=== PATIENT | male | born 1970 | race Caucasian/White ===

== ENCOUNTER 2017-11-02 14:42 | Emergency (ER) | payer OTHER ==
[2017-11-02 14:42] VITALS: BMI 22.8
--- NOTE | 2017-11-02 16:15 | C.PDOC ---
History Of Present Illness Patient with PMhx of HIV and Hep C presents to ED requesting blood work, states he has outpatient blood work 1 weeks ago done by his ID physician Dr. Petersen. He states he has been feeling weak and had two episodes of epistaxis in the last two days. Patient denies chest pain, SOB, abdominal pain, nausea/vomiting/ diarrhea, fever. Patient has been compliant with antiviral medications. Time Seen by Provider: 11/02/17 16:00 Chief Complaint (Nursing): Abnormal Labs History Per: Patient History/Exam Limitations: no limitations Current Symptoms Are (Timing): Better Past Medical History Reviewed: Historical Data, Nursing Documentation, Vital Signs Vital Signs: Last Vital Signs Temp 98.1 F 11/02/17 16:22 Pulse 74 11/02/17 16:22 Resp 18 11/02/17 16:22 BP 120/73 11/02/17 16:22 Pulse Ox 98 11/02/17 17:51 - Medical History PMH: Hepatitis, HIV Surgical History: Appendectomy - [facility] Procedures DRAINAGE OF CHEST WALL, PERCUTANEOUS APPROACH (07/07/15) Family History: States: No Known Family Hx - Social History Hx Tobacco Use: Yes Hx Alcohol Use: Yes Hx Substance Use: Yes (not daily use, last use wednesday) - Immunization History Hx Tetanus Toxoid Vaccination: No Hx Influenza Vaccination: No Hx Pneumococcal Vaccination: No Review Of Systems Except As Marked, All Systems Reviewed And Found Negative. Constitutional: Positive for: Weakness (generalized). Negative for: Fever, Chills ENT: Positive for: Other (epistaxis x 2 (resolved)) Cardiovascular: Negative for: Chest Pain, Palpitations Respiratory: Negative for: Cough, Shortness of Breath Gastrointestinal: Negative for: Nausea, Vomiting, Abdominal Pain, Diarrhea Skin: Negative for: Rash Physical Exam - Physical Exam Appears: Well, Non-toxic, No Acute Distress Skin: Normal Color, Warm, Dry Nose: Normal, No Epistaxis, No Septal Hematoma Oral Mucosa: Moist Chest: Symmetrical Cardiovascular: Rhythm Regular Respiratory: Normal Breath Sounds, No Rales, No Rhonchi, No Wheezing Gastrointestinal/Abdominal: Normal Exam, Bowel Sounds, Soft, No Tenderness ED Course And Treatment - Laboratory Results Result Diagrams: 11/02/17 16:41 11/02/17 16:41 O2 Sat by Pulse Oximetry: 98 (RA) Pulse Ox Interpretation: Normal Progress Note: Blood work ordered and reviewed. Patient made aware of blood work results (mild elevation in lipase, liver enzymes, PT/PTT), and given copies to bring to his ID physician. Call made to Dr. Petersen's office, message left requesting call back. Patient instructed to follow up as scheduled November 26, and he understands he should return to ED if symptoms worsen. Disposition Counseled Patient/Family Regarding: Studies Performed, Diagnosis, Need For Followup - Disposition Referrals: Abdias Petersen MD [Medical Doctor] - Disposition: HOME/ ROUTINE Disposition Time: 17:50 Condition: STABLE Additional Instructions: FOLLOW UP WITH DR PETERSEN ON NOVEMBER 26 RETURN TO EMERGENCY ROOM IF SYMPTOMS WORSEN SEGUIMIENTO CON DR PETERSEN EL [facility] Forms: [facility] (Malay), General Discharge Instructions Print Language: BENINESE - Clinical Impression Clinical Impression: Evaluation by medical service required
[2017-11-02 16:45] LABS: BASO # 0.1 K/uL (0.0-0.2); EOS # 0.3 K/uL (0.0-0.7); EOS % 4.9 % (0.0-4.0); HEMOGLOBIN 13.6 g/dL (12.0-18.0); LYMPH # 2.2 K/uL (1.0-4.3); LYMPH % 36.1 % (20.0-40.0); MEAN CORPUSCULAR HEMOGLOBIN 35.6 pg (27.0-31.0); MEAN CORPUSCULAR HGB CONC 35.8 g/dL (33.0-37.0); MEAN PLATELET VOLUME 7.6 fL (7.2-11.7); MONO # 0.5 K/uL (0.0-0.8); MONO % 8.9 % (0.0-10.0); NEUT % 49.1 % (50.0-75.0); NRBC % 0.1 % (0.0-2.0); RBC 3.82 Mil/uL (4.40-5.90); RED CELL DISTRIBUTION WIDTH 13.4 % (11.5-14.5)
[2017-11-02 16:48] LABS: MEAN CELL VOLUME 99.4 fL (80.0-94.0)
[2017-11-02 17:02] LABS: ALB/GLOB RATIO 0.6 (1.0-2.1); ALBUMIN 3.7 g/dL (3.5-5.0); ALT/SGPT 88 U/L (21-72); AST/SGOT 118 U/L (17-59); BLOOD UREA NITROGEN 18 mg/dL (9-20); CALCIUM 9.2 mg/dl (8.6-10.4); GFR AFRICAN-AMERICAN > 60; GFR NON-AFRICAN AMERICAN > 60; LIPASE 353 U/L (23-300)
[2017-11-02 17:04] LABS: INR 1.3; PROTHROMBIN TIME 14.2 SECONDS (9.7-12.2)
[2017-11-02 17:51] VITALS: O2SAT 98
[2017-11-02 18:35] VITALS: BP 122/78; PULSE 78; RESP 16; TEMP 98
== END 2017-11-02 18:20 | disposition home or self-care (01) ==
LOC: C.ER 14:42
DX: Z00.00 Encounter for general adult medical examination without abnormal findings (principal)

== ENCOUNTER 2018-04-23 19:17 | Emergency (ER) | payer OTHER ==
[2018-04-23 19:17] VITALS: BMI 22.8
[2018-04-23] MEDS ORDERED: Aspirin 325 mg EC Tablets PO STA (19:39)
--- NOTE | 2018-04-23 19:39 | C.PDOC ---
History Of Present Illness 48-year-old male, presents to the emergency department with complaints of left sided chest wall pain, that started earlier today while doing a carpet installation. Patient denies any nausea/vomiting, shortness of breath, back pain or any other associated symptoms. No other complaints at this time. Time Seen by Provider: 04/23/18 19:38 Chief Complaint (Nursing): Chest Pain History Per: Patient History/Exam Limitations: no limitations Current Symptoms Are (Timing): Still Present Past Medical History Reviewed: Historical Data, Nursing Documentation, Vital Signs Vital Signs: Last Vital Signs Temp 98.3 F 04/23/18 21:28 Pulse 80 04/23/18 21:28 Resp 16 04/23/18 21:28 BP 110/55 L 04/23/18 21:28 Pulse Ox 97 04/23/18 21:28 - Medical History PMH: Hepatitis, HIV Denies: Chronic Kidney Disease Surgical History: Appendectomy - [facility] Procedures DRAINAGE OF CHEST WALL, PERCUTANEOUS APPROACH (07/07/15) Family History: States: Unknown Family Hx - Social History Hx Tobacco Use: Yes Hx Alcohol Use: No Hx Substance Use: Yes (not daily use, last use wednesday) - Immunization History Hx Tetanus Toxoid Vaccination: No Hx Influenza Vaccination: No Hx Pneumococcal Vaccination: No Review Of Systems Constitutional: Negative for: Fever Cardiovascular: Positive for: Chest Pain Respiratory: Negative for: Shortness of Breath Gastrointestinal: Negative for: Nausea, Vomiting Musculoskeletal: Negative for: Neck Pain, Back Pain Skin: Negative for: Rash Neurological: Negative for: Weakness, Numbness, Headache, Dizziness Physical Exam - Physical Exam Appears: Non-toxic, No Acute Distress Skin: Normal Color, Warm, Dry, No Rash Head: Atraumatic, Normacephalic Eye(s): bilateral: Normal Inspection Nose: Normal Oral Mucosa: Moist Lips: Normal Appearing Neck: Normal ROM Chest: Tenderness (left mid-axillary line. No crepitus) Cardiovascular: Rhythm Regular, No Murmur Respiratory: Normal Breath Sounds, No Accessory Muscle Use Gastrointestinal/Abdominal: Soft, No Tenderness Extremity: Normal ROM, No Deformity Neurological/Psych: Oriented x3, Normal Speech ED Course And Treatment - Laboratory Results Result Diagrams: 04/23/18 19:56 04/23/18 19:56 ECG: Interpreted By Me, Viewed By Me ECG Rhythm: Sinus Rhythm (84), Nonspecific Changes O2 Sat by Pulse Oximetry: 100 Pulse Ox Interpretation: Normal - Radiology CXR: Interpreted by Me, Viewed By Me CXR Interpretation: Yes: Other (mild vasc congestion). No: Infiltrates, Fracture, Pnemothorax Reevaluation Time: 22:11 Reassessment Condition: Improved Medical Decision Making Medical Decision Making: I considered the following diagnoses: acute coronary syndrome, pulmonary embolism, lower respiratory infection, aortic dissection/aneurysm, pneumothorax , pericarditis, esophagitis/GERD, zoster and esophageal rupture but found them to be unlikely based on the history, physical exam, and diagnostics. My conclusions regarding the unlikely diagnoses were based on: the absence of significant EKG abnormalities, the lack of suggestive x-ray findings, the absence of significant abnormalities on cardiac monitoring, the absence of asymmetric pulses. Pt feels much better, cp free and wants to go home. Upon provider reevaluation patient is feeling better, is medically stable, and requires no further treatment in the ED at this time. Patient will be discharged home with Rx for naproxen . Counseling was provided and all questions were answered regarding diagnosis and need for follow up with the referred clinic. There is agreement to discharge plan. Return if symptoms persist or worsen. Disposition Counseled Patient/Family Regarding: Studies Performed, Diagnosis, Need For Followup, Rx Given - Disposition Referrals: [facility] [Outside] [facility] [Outside] Disposition: HOME/ ROUTINE Disposition Time: 19:39 Condition: FAIR Additional Instructions: Please return if symptoms recur Prescriptions: Naproxen [Naprosyn] 1 tab PO BID PRN #25 tab PRN Reason: Pain Instructions: Costochondritis (DC) Forms: [facility] (Sinhala) - Clinical Impression Clinical Impression: Costochondral chest pain - Scribe Statement The provider has reviewed the documentation as recorded by the Scribe (Lily Monroe) All medical record entries made by the Scribe were at my direction and personally dictated by me. I have reviewed the chart and agree that the record accurately reflects my personal performance of the history, physical exam, medical decision making, and the department course for this patient. I have also personally directed, reviewed, and agree with the discharge instructions and disposition.
[2018-04-23] MEDS ORDERED: Aspirin 325 mg EC Tablets PO ONE (19:58)
[2018-04-23 20:02] LABS: BASO % 0.3 % (0.0-2.0); EOS # 0.3 K/uL (0.0-0.7); EOS % 2.8 % (0.0-4.0); HEMOGLOBIN 12.8 g/dL (12.0-18.0); LYMPH # 3.6 K/uL (1.0-4.3); LYMPH % 38.8 % (20.0-40.0); MEAN CELL VOLUME 97.7 fL (80.0-94.0); MEAN CORPUSCULAR HEMOGLOBIN 35.3 pg (27.0-31.0); MEAN CORPUSCULAR HGB CONC 36.2 g/dL (33.0-37.0); MEAN PLATELET VOLUME 7.4 fL (7.2-11.7); MONO # 0.8 K/uL (0.0-0.8); MONO % 8.2 % (0.0-10.0); NEUT # 4.7 K/uL (1.8-7.0); NEUT % 49.9 % (50.0-75.0); NRBC % 0.2 % (0.0-2.0); RBC 3.62 Mil/uL (4.40-5.90); WHITE BLOOD COUNT 9.3 K/uL (4.8-10.8)
[2018-04-23 20:09] LABS: INR 1.4; PROTHROMBIN TIME 15.2 SECONDS (9.7-12.2)
[2018-04-23 20:12] LABS: ALB/GLOB RATIO 0.7 (1.0-2.1); ALBUMIN 3.8 g/dL (3.5-5.0); ALT/SGPT 52 U/L (21-72); AST/SGOT 60 U/L (17-59); BLOOD UREA NITROGEN 14 mg/dL (9-20); CALCIUM 8.6 mg/dl (8.6-10.4); GFR NON-AFRICAN AMERICAN > 60; LIPASE 161 U/L (23-300)
[2018-04-23 21:08] LABS: BARBITURATES, UR NEGATIVE (NEGATIVE); BENZODIAZEPINES, UR NEGATIVE (NEGATIVE); OPIATES, UR NEGATIVE (NEGATIVE); PHENCYCLIDINE, UR NEGATIVE (NEGATIVE)
[2018-04-23 21:13] LABS: URINE BILIRUBIN NEGATIVE (NEGATIVE); URINE BLOOD NEGATIVE (NEGATIVE); URINE CLARITY Clear (Clear); URINE COLOR Yellow (YELLOW); URINE GLUCOSE (UA) NORMAL (Normal); URINE LEUKOCYTE ESTERASE NEG Leu/uL (Negative); URINE PROTEIN NEGATIVE (NEGATIVE)
[2018-04-23 21:29] VITALS: BP 110/55; PULSE 80; RESP 16; TEMP 98.3
[2018-04-23 22:12] VITALS: O2SAT 100
--- NOTE | 2018-04-24 09:18 | RAD ---
Date of service: 04/23/2018 PROCEDURE: CHEST RADIOGRAPH, 1 VIEW HISTORY: chest pain COMPARISON: Chest radiographs 08/18/2016. FINDINGS: LUNGS: Early infiltrate is not excluded at the left base. Remaining lung [place] for only for right apical fibrosis once again. [facility] PLEURA: No pneumothorax or pleural fluid seen. CARDIOVASCULAR: Normal. OSSEOUS STRUCTURES: No significant abnormalities. VISUALIZED UPPER ABDOMEN: Normal. OTHER FINDINGS: None. IMPRESSION: Potential early limited infiltrate left base. Remaining lung [place] nonacute. No acute cardiovascular changes.
--- NOTE | 2018-04-26 16:50 | CARD ---
APPROVED REPORT Date of service: 04/23/2018 EKG Measurement Heart [id number] <Conclusion> Normal sinus rhythm Normal ECG
== END 2018-04-23 22:33 | disposition home or self-care (01) ==
LOC: C.ER 19:17
DX: R07.89 Other chest pain (principal); Z72.0 Tobacco use
CPT/HCPCS: 71045; 80053; 80324; 80345; 80346; 80349; 80353; 80358; 80361; 81001; 83690; 83992; 84484; 85025; 85610; 85730; 96374; 99284; J1885

== ENCOUNTER 2018-09-16 15:45 | Emergency (ER) | payer OTHER ==
[2018-09-16 15:51] VITALS: BMI 28.3
[2018-09-16 15:54] VITALS: O2SAT 98
[2018-09-16] MEDS ORDERED: Sodium Chloride 0.9% 1,000 ML ONE (16:30)
[2018-09-16] MEDS ORDERED: Sodium Chloride 0.9% 1,000 ML IV ONE ×2 (16:43→17:26)
--- NOTE | 2018-09-16 16:50 | C.PDOC ---
History Of Present Illness Patient is a 48 year old male, with a PMHx of hepatitis, diabetes, appendectomy, and HIV (viral level is undetectable), who presents to the ED for elevated glucose. Patient states that he has had this sx before due to medication and was on medication to bring it down, but not on any currently. Patient also notes that he was urinating frequently yesterday. He is on Truvada for his HIV infection. He states that he was seen at the clinic today where they prescribed him Bactrim to take Mon, Wed, and Wed. Patient denies any fever, chills, nausea, vomiting, CP, SOB, or cough. Time Seen by Provider: 09/16/18 15:59 Chief Complaint (Nursing): High Blood Sugar History Per: Patient History/Exam Limitations: no limitations Onset/Duration Of Symptoms: Hrs Current Symptoms Are (Timing): Still Present Associated Infectious Symptoms: Urinary Frequency. denies: Cough, Nausea, Vomiting, Other (fever, chills, CP, SOB) Recent travel outside of the [place]: No Additional History Per: Patient Past Medical History Reviewed: Historical Data, Nursing Documentation, Vital Signs Vital Signs: Last Vital Signs Temp 97.6 F 09/16/18 15:50 Pulse 86 09/16/18 15:50 Resp 18 09/16/18 15:50 BP 125/74 09/16/18 15:50 Pulse Ox 98 09/16/18 15:50 - Medical History PMH: Hepatitis, HIV Denies: Chronic Kidney Disease Surgical History: Appendectomy - [facility] Procedures DRAINAGE OF CHEST WALL, PERCUTANEOUS APPROACH (07/07/15) Family History: States: Unknown Family Hx - Social History Hx Tobacco Use: Yes Hx Alcohol Use: No Hx Substance Use: Yes (not daily use, last use wednesday) - Immunization History Hx Tetanus Toxoid Vaccination: No Hx Influenza Vaccination: No Hx Pneumococcal Vaccination: No Review Of Systems Constitutional: Negative for: Fever, Chills Cardiovascular: Negative for: Chest Pain Respiratory: Negative for: Cough, Shortness of Breath Gastrointestinal: Negative for: Nausea, Vomiting Genitourinary: Positive for: Frequency Physical Exam - Physical Exam Appears: Non-toxic, No Acute Distress Skin: Normal Color, Warm, Dry Head: Atraumatic, Normacephalic Oral Mucosa: Moist Neck: Normal ROM, Supple Chest: Symmetrical, No Deformity Cardiovascular: Rhythm Regular, No Murmur Respiratory: Normal Breath Sounds, No Rales, No Rhonchi, No Wheezing Gastrointestinal/Abdominal: Soft, No Tenderness, No Guarding, No Rebound Extremity: Normal ROM Neurological/Psych: Oriented x3, Normal Speech, Normal Cognition ED Course And Treatment - Laboratory Results Result Diagrams: 09/16/18 16:52 09/16/18 16:52 O2 Sat by Pulse Oximetry: 98 (on RA) Pulse Ox Interpretation: Normal Medical Decision Making Medical Decision Making: Bloodwork ordered and reviewed. IV Fluids administered. On reassessment, patient's glucose Accucheck was 254. Patient has been no ncompliant with diabetic medication and does not remember what he was supposed to be taking. Will provide Rx for Metformin. Patient was instructed to f/u with PCP. Disposition Counseled Patient/Family Regarding: Studies Performed, Diagnosis, Need For Followup - Disposition Referrals: [facility] [Outside] [facility] [Outside] Disposition: HOME/ ROUTINE Disposition Time: 18:53 Condition: IMPROVED Additional Instructions: CHINEDU KELLEY, thank you for letting us take care of you today. Your provider was Omayra Cardoso MD and you were treated for HIGH SUGAR. The emergency medical care you received today was directed at your acute symptoms. If you were prescribed any medication, please fill it and take as directed. It may take several days for your symptoms to resolve. Return to the Emergency Department if your symptoms worsen, do not improve, or if you have any other problems. Please contact your doctor or call one of the physicians/clinics you have been referred to that are listed on the Patient Visit Information form that is included in your discharge packet. Bring any paperwork you were given at discharge with you along with any medications you are taking to your follow up visit. Our treatment cannot replace ongoing medical care by a primary care provider outside of the emergency department. Thank you for allowing the [facility] team to be part of your care today. If you had an X-Ray or CT scan: A Radiologist will review the ED reading if any change in treatment is needed we will contact you. If you had a blood, urine, or wound culture: It will take several days for the results, if any change in treatment is needed we will contact you. If you had an STI test: It will take 48 hours for the results. Please call after 1 week if you have not heard back. Prescriptions: RX: metFORMIN [glucOPHAGE] 500 mg PO BID #60 tab Instructions: Hyperglycemia, Adult (DC) Forms: Gen Discharge Inst Italian, [facility] (Italian) Print Language: NIUEAN - POA Present On Arrival: Poor Glycemic Control - Clinical Impression Clinical Impression: Hyperglycemia - Scribe Statement The provider has reviewed the documentation as recorded by the Lonibcarlos Pillai All medical record entries made by the Lonibcarlos were at my direction and personally dictated by me. I have reviewed the chart and agree that the record accurately reflects my personal performance of the history, physical exam, medical decision making, and the department course for this patient. I have also personally directed, reviewed, and agree with the discharge instructions and disposition.
[2018-09-16 16:57] LABS: BASO % 0.7 % (0.0-2.0); EOS # 0.2 K/uL (0.0-0.7); EOS % 4.1 % (0.0-4.0); HEMOGLOBIN 13.5 g/dL (12.0-18.0); LYMPH # 1.8 K/uL (1.0-4.3); LYMPH % 37.6 % (20.0-40.0); MEAN CORPUSCULAR HEMOGLOBIN 33.9 pg (27.0-31.0); MEAN CORPUSCULAR HGB CONC 35.8 g/dL (33.0-37.0); MEAN PLATELET VOLUME 8.7 fL (7.2-11.7); MONO # 0.5 K/uL (0.0-0.8); MONO % 9.5 % (0.0-10.0); NEUT # 2.3 K/uL (1.8-7.0); NEUT % 48.1 % (50.0-75.0); NRBC % 0.2 % (0.0-2.0); RBC 3.98 Mil/uL (4.40-5.90); RED CELL DISTRIBUTION WIDTH 12.3 % (11.5-14.5); WHITE BLOOD COUNT 4.7 K/uL (4.8-10.8)
[2018-09-16 17:02] LABS: MEAN CELL VOLUME 94.9 fL (80.0-94.0)
[2018-09-16 17:10] LABS: ALB/GLOB RATIO 0.8 (1.0-2.1); ALT/SGPT 89 U/L (21-72); AST/SGOT 94 U/L (17-59); BLOOD UREA NITROGEN 15 mg/dL (9-20); CALCIUM 8.9 mg/dl (8.6-10.4); GFR NON-AFRICAN AMERICAN > 60
--- NOTE | 2018-09-16 18:20 | RAD ---
Date of service: 09/16/2018 HISTORY: cough COMPARISON: Portable chest 04/23/2018. TECHNIQUE: Chest PA and lateral FINDINGS: LUNGS: Stable fibrotic changes medial right apex. No acute airspace disease bilaterally. PLEURA: No significant pleural effusion identified. No pneumothorax apparent. CARDIOVASCULAR: No aortic atherosclerotic calcification present. Normal cardiac size. No pulmonary vascular congestion. OSSEOUS STRUCTURES: No significant abnormalities. VISUALIZED UPPER ABDOMEN: Normal. OTHER FINDINGS: None. IMPRESSION: No acute cardiopulmonary disease. Chronic fibrosis right apex again evident.
[2018-09-16 18:37] LABS: SQUAMOUS EPITHIAL < 1 /hpf (0-5); URINE BILIRUBIN NEGATIVE (NEGATIVE); URINE BLOOD NEGATIVE (NEGATIVE); URINE CLARITY Clear (Clear); URINE COLOR Yellow (YELLOW); URINE GLUCOSE (UA) 3+ mg/dL (Normal); URINE LEUKOCYTE ESTERASE NEG Leu/uL (Negative); URINE PROTEIN NEGATIVE (NEGATIVE)
[2018-09-16 19:18] VITALS: BP 109/67; PULSE 76; RESP 20; TEMP 97.2
== END 2018-09-16 19:17 | disposition home or self-care (01) ==
LOC: C.ER 15:45
DX: E11.65 Type 2 diabetes mellitus with hyperglycemia (principal); Z72.0 Tobacco use; Z21 Asymptomatic human immunodeficiency virus [HIV] infection status
CPT/HCPCS: 71046; 80053; 81001; 82948; 85025; 96360; 96361; 99285; J7030